=== PATIENT | male | born 1960 | race Caucasian/White ===

== ENCOUNTER 2022-05-31 13:09 | Emergency (ER) | payer MEDICAID ==
[~2022-05-31] VITALS: Ht 167.6 cm; Wt 108.9 kg
[2022-05-31 13:13] VITALS: BP 160/80
--- NOTE | 2022-05-31 13:31 | NUR ---
OLEKSANDR YEBOAH AT BEDSIDE FOR EVALUATION
[2022-05-31] MEDS ORDERED: ACETAMINOPHEN EXTRA STRENGTH 500 MG TAB PO ONE (13:45)
--- NOTE | 2022-05-31 13:55 | NUR ---
61YO MALE PT C/O RASH [id number]. REPORTS SUDDEN ONSET AND PRESENTS WITH RASH SPOTS THROUGHOUT BODY +ITCHY. STATES MILD RELIEF AFTER OTC CORTIZONE CREAM. NOTES THROBBING 8/10 HEADACHE, CONGESTION, FEVER AND CHILLS X1WEEK. MILD RELIEF AFTER TYLENOL AND EXCEDRIN. DENIES CHEST PAIN, N/V/D, SOB OR ANYONE SICK AT HOME. PT AAOX4, NO VISIBLE DISTRESS. HX: DIABETES, COPD NKA
[2022-05-31] MEDS ORDERED: PROM118S5 PO (14:11)
[2022-05-31] MEDS ORDERED: LORA10TA19 PO (14:11)
[2022-05-31] MEDS ORDERED: FLONAS NS (14:11)
[2022-05-31] MEDS ORDERED: ACET-10509 PO (14:11)
--- NOTE | 2022-05-31 14:18 | NUR ---
Patient discharged with v/s stable. Written and verbal after care instructions FOR RASH AND URI given and explained. Patient alert, oriented and verbalized understanding of instructions. Ambulatory with steady gait. All questions addressed prior to discharge. ID band removed. Patient advised to follow up with PMD. Rx of TYLENOL XTRA STRENGHT, FLONASE NASAL, CLARITIN AND PROMETHAZINE given. . Opportunity to ask questions provided and answered.
--- NOTE | 2022-05-31 14:19 | NUR ---
The patient's care was reviewed and supervised by Nicol Sanz RN.
== END 2022-05-31 14:18 | disposition home or self-care (01) ==
LOC: MED 13:09
DX: R09.89 Other specified symptoms and signs involving the circulatory and respiratory systems (principal); R09.81 Nasal congestion; J02.9 Acute pharyngitis, unspecified
CPT/HCPCS: 99282